=== PATIENT | male | born 1960 | race Hispanic/Latino ===

== ENCOUNTER 2016-10-09 08:48 | Inpatient (IN) | payer MEDICAID, OTHER ==
[2016-10-09 08:48] VITALS: BMI 23.6
--- NOTE | 2016-10-09 09:52 | C.PDOC ---
History Of Present Illness 56 y/o male presents to the ED requesting detox from opiates, benzos, and alcohol. He reports last use was last night at 9 pm. He states he has been trying to get detox but he has been unable to because "they are always full". Patient denies any suicidal/homicidal ideations, and has no current physical complaints. Time Seen by Provider: 10/09/16 09:12 Chief Complaint (Nursing): Substance Abuse History Per: Patient History/Exam Limitations: no limitations Onset/Duration Of Symptoms: Days, Persistent Current Symptoms Are (Timing): Still Present Suicide/Self Injury Attempted (Context): None Modifying Factor(s): Alcohol, Narcotics, Other (benzos) Past Medical History Reviewed: Historical Data, Nursing Documentation, Vital Signs Vital Signs: Last Vital Signs Temp 98.0 F 10/13/16 09:00 Pulse 74 10/13/16 09:00 Resp 20 10/13/16 09:00 BP 145/83 10/13/16 09:00 Pulse Ox 100 10/13/16 09:00 - Medical History PMH: Anxiety, Depression, Parkinson's Disease, Seizures (from xanax withdraw) Surgical History: No Surg Hx - [facility] Procedures DETOXIFICATION SERVICES FOR SUBSTANCE ABUSE TREATMENT (10/09/16) GROUP VIDEO SYSTEMS ENGINEER FOR SUBSTANCE ABUSE TREATMENT, PSYCHOEDUCATION (10/09/16) GROUP VIDEO SYSTEMS ENGINEER FOR SUBSTANCE ABUSE, MOTIVATIONAL ENHANCE (04/05/15) INDIV PSYCHOTHERAPY FOR SUBSTANCE ABUSE TREATMENT, SUPPORT (10/09/16) Family History: States: No Known Family Hx - Social History Hx Tobacco Use: Yes (heavy smoker) Hx Alcohol Use: Yes Hx Substance Use: Yes - Immunization History Hx Tetanus Toxoid Vaccination: No Hx Influenza Vaccination: No Hx Pneumococcal Vaccination: No Review Of Systems Except As Marked, All Systems Reviewed And Found Negative. Cardiovascular: Negative for: Chest Pain, Palpitations Respiratory: Negative for: Shortness of Breath Musculoskeletal: Negative for: Other (pain) Psych: Negative for: Suicidal ideation (or homicidal ideation) Physical Exam - Physical Exam Appears: Well, Non-toxic, No Acute Distress Skin: Normal Color, Warm, Dry Head: Normacephalic Eye(s): bilateral: Normal Inspection Oral Mucosa: Moist Chest: Symmetrical Cardiovascular: Rhythm Regular Respiratory: Normal Breath Sounds, No Rales, No Rhonchi, No Wheezing Gastrointestinal/Abdominal: Normal Exam, Bowel Sounds, Soft, No Tenderness Extremity: Normal ROM, No Swelling, No Other (tremors) Neurological/Psych: Oriented x3 ED Course And Treatment - Laboratory Results Result Diagrams: 10/09/16 10:26 10/09/16 10:26 O2 Sat by Pulse Oximetry: 99 (ra) Pulse Ox Interpretation: Normal Progress Note: Blood Work, UA ,UDS ordered and reviewed. 11:05am- Patient medically cleared. Pending crisis. 1:00PM- Patient accepted for benzo/alcohol/ dependence detox admission by Dr. Travis. - Physician Consult Information Physician Contacted: Michael Travis Disposition - Disposition Disposition Time: 13:00 Condition: STABLE - Clinical Impression Clinical Impression: Polysubstance dependence, Alcohol dependence - Scribe Statement The provider has reviewed the documentation as recorded by the Scribe (Lynette Paz) Provider Attestation: All medical record entries made by the Scribe were at my direction and personally dictated by me. I have reviewed the chart and agree that the record accurately reflects my personal performance of the history, physical exam, medical decision making, and the department course for this patient. I have also personally directed, reviewed, and agree with the discharge instructions and disposition. Decision To Admit - Pt Status Changed To: Hospital Disposition Of: Inpatient - Admit Certification Admit to Inpatient:: After my assessment, the patient will require hospitalization for at least two midnights. This is because of the severity of symptoms shown, intensity of services needed, and/or the medical risk in this patient being treated as an outpatient. - InPatient: Physician Admission Certification: I certify that this patient requires 2 or more midnights of care for the following reason:: see notes - . Bed Request Type: Psychiatry Admitting Physician: Michael Travis Patient Diagnosis: Alcohol dependence, Polysubstance dependence
[2016-10-09 10:29] LABS: BASO # 0.1 K/uL (0.0-0.2); BASO % 0.6 % (0.0-2.0); EOS # 0.1 K/uL (0.0-0.7); EOS % 1.6 % (0.0-4.0); HEMATOCRIT 43.8 % (35.0-51.0); LYMPH # 2.4 K/uL (1.0-4.3); LYMPH % 25.3 % (20.0-40.0); MEAN CORPUSCULAR HEMOGLOBIN 31.5 pg (27.0-31.0); MEAN CORPUSCULAR HGB CONC 33.9 g/dL (33.0-37.0); MEAN PLATELET VOLUME 6.7 fL (7.2-11.7); MONO # 0.9 K/uL (0.0-0.8); MONO % 9.6 % (0.0-10.0); RED CELL DISTRIBUTION WIDTH 13.8 % (11.5-14.5); WHITE BLOOD COUNT 9.4 K/uL (4.8-10.8)
[2016-10-09 10:34] LABS: RBC URINE < 1 /hpf (0-3); URINE BILIRUBIN NEGATIVE (NEGATIVE); URINE BLOOD NEGATIVE (NEGATIVE); URINE COLOR Yellow (YELLOW); URINE GLUCOSE (UA) NORMAL (Normal); URINE KETONE NEGATIVE (NEGATIVE); URINE LEUKOCYTE ESTERASE NEG Leu/uL (Negative); URINE PROTEIN NEGATIVE (NEGATIVE); URINE UROBILINOGEN NORMAL mg/dL (0.2-1.0); WBC URINE < 1 /hpf (0-5)
[2016-10-09 10:39] LABS: CHLORIDE 95 mmol/L (98-107); POTASSIUM 3.6 mmol/L (3.6-5.2); SODIUM 137 mmol/L (132-148)
[2016-10-09 10:41] LABS: AST/SGOT 24 U/L (17-59); BILIRUBIN,TOTAL 0.9 mg/dL (0.2-1.3); CARBON DIOXIDE 25 mmol/L (22-30); GFR AFRICAN-AMERICAN > 60
[2016-10-09 10:42] LABS: ALB/GLOB RATIO 1.2 (1.0-2.1); ALKALINE PHOSPHATASE 71 U/L (38-126); ALT/SGPT 10 U/L (21-72); BLOOD UREA NITROGEN 11 mg/dL (9-20); CALCIUM 9.3 mg/dl (8.6-10.4); GLUCOSE,RANDOM 85 mg/dL (75-110); TOTAL PROTEIN 8.7 g/dL (6.3-8.3)
[2016-10-09 10:43] LABS: ALCOHOL SERUM < 10 mg/dl (0-10)
[2016-10-09] MEDS ORDERED: Aluminum Hydroxide/Magnesium Hydroxide Susp (30 mL) PO PRN (18:34)
[2016-10-10] MEDS ORDERED: Buprenorphine Hydrochloride 2 mg SL ONE ×2 (12:15→13:30)
--- NOTE | 2016-10-10 12:27 | PCM.PSYCH ---
Initial Psychiatric Evaluation - Initial Psychiatric Evaluation Type of Admission: Voluntary Legal Status: Capacity Chief Complaint (in patient's own words): "I need to stop this" History of Present Illness and Precipitating Events: The patient is seen, chart reviewed and case discussed. The patient is known to the business writer from previous admission. This is a 56-year-old male, with one child, 23 years old, lives in [place], alone, unemployed. The patient reports drinking a quart but now down to 2 pints of vodka every day for the past 4 months. His first drink was when he was in his late teens but it became a problem after he turned 39. She has been to detox 3 times and rehabilitation twice and goes to and [facility]. He also admits to using 90 mg of Lisbet- and 80 mg of OxyContin. Last use was couple of days ago and his urine is negative but he is in opioid withdrawal. He says he started in his late 30s. Never used heroin. He also uses Xanax 2 sticks a day and sometimes Valium instead of Xanax. Denies other drugs Reports anxiety but not depressed or suicidal. Past psych history: Received some treatment for anxiety but no admissions and no suicide attempts. Family psych history: Father was an alcoholic. Medical history: Denies Current Medications: Active Medications Generic Name Dose Route Start Last Admin Trade Name Freq PRN Reason Stop Dose Admin Al Hydrox/Mg Hydrox/Simethicone 30 ml 10/09/16 18:34 Maalox 30 Ml PO TID PRN Indigestion / Heartburn Buprenorphine HCl 6 mg 10/10/16 13:30 Subutex SL 10/10/16 13:31 ONCE ONE Chlordiazepoxide 25 mg 10/09/16 14:58 10/10/16 09:11 Librium PO 25 mg Q4H PRN Administration Alcohol Withdrawal Chlordiazepoxide 25 mg 10/09/16 18:00 10/10/16 12:14 Librium PO 10/13/16 17:59 25 mg Q6 LYLE Administration Taper Clonidine HCl 0.1 mg 10/09/16 18:34 Catapres PO Q8 PRN COWS Score More or Equal to 5 Gabapentin 300 mg 10/10/16 10:00 10/10/16 09:10 Neurontin PO 300 mg TID LYLE Administration Hydroxyzine HCl 50 mg 10/09/16 18:35 Atarax PO Q6H PRN Anxiety Ibuprofen 600 mg 10/09/16 18:35 10/10/16 06:24 Motrin Tab PO 600 mg Q6H PRN Administration Pain, moderate (4-7) Loperamide HCl 2 mg 10/09/16 18:34 Imodium PO Q8 PRN Diarrhea Nicotine 1 patch 10/10/16 10:00 10/10/16 09:10 Nicoderm Cq TD 1 patch DAILY LYLE Administration Ondansetron HCl 4 mg 10/09/16 18:34 Zofran Tab PO Q8 PRN Nausea/Vomiting Trazodone HCl 100 mg 10/09/16 22:00 Desyrel PO HS PRN Insomnia Past Psychiatric History - Past Psychiatric History Previous Treatment History: None Pertinent Medical Hx (Current Medical&Sleep Prob, Allergies): Allergies Allergy/AdvReac Type Severity Reaction Status Date / Time No Known Allergies Allergy Verified 10/09/16 08:59 Amoxicillin 500 mg PO TID #30 capsule 02/20/16 Ibuprofen [Motrin Tab] 800 mg PO TID #20 tab 02/20/16 Review of Systems - Neurological Neurological: Tremor - Psychiatric Psychiatric: Abnormal Sleep Pattern, Anhedonia, Anxiety, Difficulty Concentrating, Irritability. absent: Auditory Hallucinations, Depression, Hallucinations, Homicidal Ideation, Mood Swings, Suicidal Ideation Mental Status Examination - Personal Presentation Personal Presentation: Looks older than stated age - Affect Affect: Constricted - Motor Activity Motor Activity: Calm - Reliability in Providing Information Reliability in Providing Information: Good - Speech Speech: Organized - Mood Mood: Anxious - Formal Thought Process Formal Thought Process: No Impairment - Cognitive Functions Orientation: Person, Place, Situation, Time Sensorium: Alert Attention/Concentration: Attentive Estimate of Intelligence: Average Judgement: Intact, as evidence by: Insight regarding need for hospitalization Memory: Recent intact, as evidence by: Ability to recall events of the day, Remote intact, as evidenced by: Abilit to recall sig. life events - Risk Risk: Withdrawal, Diminished functioning - Strength & Assets Inventory Strength & Assets Inventory: Cooperative - Limitations Limitations: Living alone DSM 5 DX - DSM 5 DSM 5 Diagnosis: primary: Alcohol withdrawal Opioid withdrawal Alcohol use disorder, severe Opioid use disorder, severe Sedative, hypnotic and anxiolytic use disorder, severe Anxiety disorder, unspecified - Recommended/Plan of Treatment Treatment Recommendations and Plan of Treatment: Alcohol: -Librium detox -Gabapentin -As needed medications -Attend groups and activities -[place] and CBT for abstinence and relapse prevention -Support and psychoeducation -Refer to [facility] Opioids: -Subutex detox -As needed medications -Attend groups and activities -[facility] and CBT for abstinence and relapse prevention -Support and psychoeducation -Refer to [facility] Sedative hypnotics: -Librium detox -Gabapentin -As needed medications -Attend groups and activities -[facility] and CBT for abstinence and relapse prevention -Support and psychoeducation -Refer to [facility] 33 min Projected ELOS: 4 days Prognosis: good with treatment Discharge Plan and Discharge Criteria: no withdrawal symptoms Refer to [facility]
[2016-10-11] MEDS: Buprenorphine Hydrochloride 2 mg SL SCH (09:41)
--- NOTE | 2016-10-12 08:09 | PCM.PYCHPN ---
Psychiatric Progress Note - Psychiatric Progress Note Patient seen today, length of contact: 17 min Patient Chief Complaint: "I am better this morning" Problems Identified/Issues Discussed: The pt is seen, chart reviewed, case discussed with staff. The pt is compliant with medications and reports no side-effects. Symptoms are improving but needs more time to stabilize. After care discussed, support and psychoeducation given. [place] and CBT used briefly. Medication Change: Yes (detox changes daily) Medical Record Reviewed: Yes Mental Status Examination - Cognitive Function Orientation: Person, Place, Situation, Time Memory: Intact Attention: WNL Concentration: WNL - Mood Mood: Anxious - Affect Affect: Constricted - Speech Speech: Appropriate - Formal Thought Process Formal Thought Process: No Impairment - Suicidal Ideation Suicidal Ideation: No - Homicidal Ideation Homicidal Ideation: No Goal/Treatment Plan - Goal/Treatment Plan Need for Continued Stay: Discharge may exacerbated symptoms, Severe functional impairment Progress Toward Problem(s) and Goals/Treatment Plan: Alcohol: -Librium detox -Gabapentin -As needed medications -Attend groups and activities -[place] and CBT for abstinence and relapse prevention -Support and psychoeducation -Refer to [facility] Opioids: -Subutex detox -As needed medications -Attend groups and activities -[place] and CBT for abstinence and relapse prevention -Support and psychoeducation -Refer to [facility] Sedative hypnotics: -Librium detox -Gabapentin -As needed medications -Attend groups and activities -[place] and CBT for abstinence and relapse prevention -Support and psychoeducation -Refer to [facility] Estimated Date of D/C: 10/14/16
[2016-10-12] MEDS: Buprenorphine Hydrochloride 2 mg SL SCH (09:13)
--- NOTE | 2016-10-12 12:24 | PCM.PYCHPN ---
Psychiatric Progress Note - Psychiatric Progress Note Patient seen today, length of contact: 16 min Patient Chief Complaint: withdrawal symptoms are getting better Problems Identified/Issues Discussed: Patient seen and evaluated, chart reviewed and discussed with the nurse. Patient states that his anxiety is getting better. Patient reports improvement in his withdrawal symptoms however he is still experiencing shakes. However patient wants to get discharged tomorrow. He denies any suicidal ideation or homicidal ideation. Patient is taking medications and denies any side effects. Supportive therapy and psychoeducation were given. Medication Change: Yes (detox changes daily) Medical Record Reviewed: Yes Mental Status Examination - Cognitive Function Orientation: Person, Place, Situation, Time Memory: Intact Attention: WNL Concentration: WNL Association: WNL Fund of Knowledge: WNL - Mood Mood: Anxious - Affect Affect: Constricted - Speech Speech: Appropriate, Soft - Formal Thought Process Formal Thought Process: No Impairment - Suicidal Ideation Suicidal Ideation: No - Homicidal Ideation Homicidal Ideation: No Goal/Treatment Plan - Goal/Treatment Plan Need for Continued Stay: Discharge may exacerbated symptoms, Severe functional impairment Progress Toward Problem(s) and Goals/Treatment Plan: primary: Alcohol withdrawal Opioid withdrawal Alcohol use disorder, severe Opioid use disorder, severe Sedative, hypnotic and anxiolytic use disorder, severe Anxiety disorder, unspecified Alcohol: -Librium detox -Gabapentin -As needed medications -Attend groups and activities -[facility] and CBT for abstinence and relapse prevention -Support and psychoeducation -Refer to [facility] Opioids: -Subutex detox -As needed medications -Attend groups and activities -[facility] and CBT for abstinence and relapse prevention -Support and psychoeducation -Refer to [facility] Sedative hypnotics: -Librium detox -Gabapentin -As needed medications -Attend groups and activities -[facility] and CBT for abstinence and relapse prevention -Support and psychoeducation -Refer to [facility] Estimated Date of D/C: 10/14/16 - Smoking Cessation Smoking Cessation Initiated: Yes
[2016-10-13 06:03] VITALS: RESP 20
[2016-10-13] MEDS: Buprenorphine Hydrochloride 2 mg SL SCH (09:17)
[2016-10-13 10:37] VITALS: BP 145/83; PULSE 74; TEMP 98
--- NOTE | 2016-10-13 11:57 | PCM.PYCHDC ---
Mental Status Examination - Mental Status Examination Orientation: Person, Place, Situation, Time Memory: Intact Mood: Neutral Affect: Constricted Speech: Soft Attention: WNL Concentration: WNL Association: WNL Fund of Knowledge: WNL Formal Thought Process: No Impairment Description of patient's judgement and insight: good, fair Psychotic Thoughts and Behaviors: denies any AVH Suicidal Ideation: No Current Homicidal Ideation?: No Discharge Summary - Discharge Note Reason for Hospitalization: This is a 56-year-old male, with one child, 23 years old, lives in [place], alone, unemployed. The patient reports drinking a quart but now down to 2 pints of vodka every day for the past 4 months. His first drink was when he was in his late teens but it became a problem after he turned 39. She has been to detox 3 times and rehabilitation twice and goes to and . He also admits to using 90 mg of Lisbet- and 80 mg of OxyContin. Last use was couple of days ago and his urine is negative but he is in opioid withdrawal. He says he started in his late 30s. Never used heroin. He also uses Xanax 2 sticks a day and sometimes Valium instead of Xanax. Denies other drugs Reports anxiety but not depressed or suicidal. Past psych history: Received some treatment for anxiety but no admissions and no suicide attempts. Consultations:: List each consultation separately and include: 1. Reason for request. 2. Findings. 3. Follow-up Summary of Hospital Course include:: 1. Description of specific treatment plan utilized for patients during their course of treatmen. 2. Summarize the time- course for resolution of acute symptoms and/or regressed behaviors. 3. Describe issues identified and worked on during hospitalization. 4. Describe medication utilized. 5. Describe medical problems identified and treated. 6. Reassessment of suicide risk Summary of Hospital Course: During the course of her stay, pt started progressively improving and she no longer remained irritable and anxious. She tolerated the withdrawal protocol very well. She didnt have any shakes, sweating or any other withdrawal symptoms. She denied any feelings of hopelessness, helplessness, and worthlessness, denied any problems with the sleep and appetite, denied suicidal ideation or homicidal ideation, and denied any auditory or visual hallucinations. Some changes were made in her current medications. She was discharged on the following medications. She tolerated the detox medications very well and denied any side effects. - Final Diagnosis (DSM 5) Condition upon Discharge: GOOD DSM 5: Alcohol withdrawal Opioid withdrawal Alcohol use disorder, severe Opioid use disorder, severe Sedative, hypnotic and anxiolytic use disorder, severe Anxiety disorder, unspecified Disposition: HOME/ ROUTINE Follow-up Treatment Plan: Education: Pt was educated and counseled about the risks and benefits of taking and not taking medications. Pt was educated and counseled about the risks of drinking and abusing drugs. Pt was educated and counseled to go to the ER or call 911 if pt develop suicidal ideation or homicidal ideation, worsening of symptoms or severe side effects of the meds. Prescriptions/Medication Reconciliation: traZODone [Desyrel] 100 mg PO HS PRN #30 tab PRN Reason: Insomnia Gabapentin [Neurontin] 300 mg PO TID #90 cap QUEtiapine [Seroquel] 100 mg PO HS #30 tab QUEtiapine [Seroquel] 100 mg PO HS #30 tab - Smoking Cessation Smoking Cessation Medication prescribed: No - Antipsychotic Medications Pt discharged on 2 or more routine antipsychotic medications: No
[2016-10-18 15:33] VITALS: O2SAT 99
== END 2016-10-13 12:22 | disposition home or self-care (01) | DRG 745 ==
LOC: C.ER 08:48 → C.7D 13:02
PROVIDERS: ADMIT Psychiatry & Neurology Psychiatry; ATTEND Psychiatry & Neurology Psychiatry
PROC: HZ2ZZZZ Detoxification Services for Substance Abuse Treatment (ICD-10-PCS; principal; 2016-10-09)
PROC: HZ46ZZZ Group Counseling for Substance Abuse Treatment, Psychoeducation (ICD-10-PCS; 2016-10-09)
PROC: HZ59ZZZ Individual Psychotherapy for Substance Abuse Treatment, Supportive (ICD-10-PCS; 2016-10-09)
DX: F10.230 Alcohol dependence with withdrawal, uncomplicated (principal); F11.20 Opioid dependence, uncomplicated; F13.20 Sedative, hypnotic or anxiolytic dependence, uncomplicated; F41.9 Anxiety disorder, unspecified